=== PATIENT | male | born 1940 | race Caucasian/White ===

== ENCOUNTER → 2024-12-26 | Outpatient (CLI) | payer MEDICARE, OTHER ==
--- NOTE | 2024-12-26 13:27 | CT ---
EXAMINATION TYPE: CT brain wo con DATE OF EXAM: 12/26/2024 COMPARISON: None CLINICAL INDICATION: Male, 84 years old with history of S09.8XXA; PHH, RECENT FALL SUSPECT BRAIN BLEE D CT DLP: 1047.10 mGycm Automated exposure control for dose reduction was used. Findings: The ventricles, basal cisterns and sulci and axes are markedly enlarged consistent with moderate gene ralized atrophy. There is marked decreased density in the periventricular white matter consistent with marked chronic ischemic white matter demyelination. There is a small remote lacunar infarct in the left basal ganglia. There is no mass effect or shift of midline structures. There is no acute intracranial or extra-axial hemorrhage. The posterior fossa including the brainstem, fourth ventricle and cerebellar pontine angles appear no rmal. Intraorbital contents appear normal and symmetric. Visualized paranasal sinuses and mastoid air cells are well aerated. The calvarium is intact. IMPRESSION: 1. No acute bleed or mass effect. 2. Marked generalized atrophy and chronic ischemic white matter change. 3 small remote infarct left b janet ganglia. [facility], , 12/26/2024 1:25 PM
== END | disposition home or self-care (01) ==
LOC: RADCTMAIN 12:43
PROVIDERS: ATTEND Internal Medicine
DX: S09.8XXA Other specified injuries of head, initial encounter (principal); I67.82 Cerebral ischemia; R90.82 White matter disease, unspecified; Z86.73 Personal history of transient ischemic attack (TIA), and cerebral infarction without residual deficits
CPT/HCPCS: 70450